=== PATIENT | male | born 1990 | race Caucasian/White ===

== ENCOUNTER 2022-05-07 17:36 | Emergency (ER) | payer SELFPAY | END 2022-05-08 05:26 | disposition left against medical advice (07) | LOC: MW.ED 17:36 | DX: Z53.21 Procedure and treatment not carried out due to patient leaving prior to being seen by health care provider (principal) ==

== ENCOUNTER 2022-11-11 16:11 | Emergency (ER) | payer SELFPAY ==
[2022-11-11 18:46] LABS: CORONAVIRUS COVID-19 NAA NEGATIVE (NEGATIVE); INFLUENZA A NAA NEGATIVE (NEGATIVE); INFLUENZA B NAA NEGATIVE (NEGATIVE); RESPIRATORY SYNCYTIAL VIR NAA NEGATIVE (NEGATIVE)
== END 2022-11-11 19:25 | disposition home or self-care (01) ==
LOC: MW.ED 16:11
DX: J06.9 Acute upper respiratory infection, unspecified (principal); R00.0 Tachycardia, unspecified; F15.20 Other stimulant dependence, uncomplicated; Z88.5 Allergy status to narcotic agent; Z86.16 Personal history of COVID-19; Z20.822 Contact with and (suspected) exposure to COVID-19
CPT/HCPCS: 0241U; 93005; 99284; 93010; 99283